=== PATIENT | female | born 1980 | race African-American/Black ===

== ENCOUNTER 2018-04-04 16:10 | Inpatient (IN) | payer MEDICAID ==
[~2018-04-04] VITALS: Ht 157.5 cm; Wt 74.8 kg
[2018-04-04] MEDS ORDERED: BETAMET ACET/BETAMET NA PH 30 MG/5 ML VIAL IM ONE (17:30)
[2018-04-04] MEDS ORDERED: AMPICILLIN SODIUM 2 GM in NS 100 ML IV ONE (17:30)
[2018-04-04] MEDS ORDERED: AZITHROMYCIN 250 MG TABLET PO ONE (17:30)
[2018-04-04] MEDS: LR 1,000 ML IV SCH (17:39)
[2018-04-04 17:42] LABS: BILIRUBIN,URINE NEGATIVE (NEGATIVE); BLOOD, URINE NEGATIVE (NEGATIVE); CLARITY/URINE CLEAR (CLEAR); COLOR,URINE YELLOW (YELLOW); GLUCOSE,URINE NEGATIVE (NEGATIVE); KETONES,URINE NEGATIVE (NEGATIVE); LEUKOCYTE ESTERASE ,URINE 1+ (NEGATIVE); NITRITE, URINE NEGATIVE (NEGATIVE); PROTEIN URINE NEGATIVE (NEGATIVE); UROBILINOGEN,URINE 0.2 (0.2-1.0)
[2018-04-04 17:50] LABS: BACTERIA,URINE FEW /HPF (None Seen); RBC,URINE 0-3 /HPF (0-3); TRICHOMONAS,URINE Few /HPF (None Seen); WBC,URINE 20-50 /HPF (0-3)
[2018-04-04 17:55] LABS: HEMATOCRIT 29.3 % (36-48); HEMOGLOBIN 9.7 g/dL (12.0-16.0); MEAN CORPUSCULAR HEMOGLOBIN 27 pg (27-31); MEAN CORPUSCULAR HGB CONC 33 % (32-36); MEAN CORPUSCULAR VOLUME 83 fL (79.0-98.0); PLATELET COUNT (AUTO) 277 K/uL (130-430); RED BLOOD CELL COUNT(AUTO) 3.54 MIL/uL (4.2-6.2); RED CELL DISTRIBUTION WIDTH 14.6 % (9.0-15.0); WHITE BLOOD COUNT (AUTO) 10.7 K/uL (4.8-10.8)
[2018-04-04 17:59] LABS: BAND % (MANUAL) 0 % (0-6); BASOPHILS % (MANUAL) 0 % (0-2); CALCIUM 8.5 mg/dL (8.4-11.0); CREATININE 0.65 mg/dL (0.55-1.30); EOSINOPHILS % (MANUAL) 0 % (0-7); LYMPHOCYTES % (MANUAL) 16 % (20-46); MONOCYTES % (MANUAL) 8 % (0-11); POTASSIUM 3.7 mmol/L (3.5-5.1)
[2018-04-04 18:04] LABS: TOTAL BILIRUBIN 0.5 mg/dL (0.0-1.0)
[2018-04-04] MEDS ORDERED: ONDANSETRON HCL 4 MG/2 ML VIAL ONE (18:59)
[2018-04-04] MEDS ORDERED: ONDANSETRON HCL 4 MG/2 ML VIAL IVP PRN (19:00)
[2018-04-04] MEDS ORDERED: AZITHROMYCIN 500 MG in NS 250 ML IV ONE (19:00)
[2018-04-04] MEDS ORDERED: MAGNESIUM SULFATE IN WATER 100 ML IV ONE (20:10)
[2018-04-04] MEDS ORDERED: MORPHINE SULFATE 10 MG/ML VIAL IM ONE (20:15)
[2018-04-04] MEDS ORDERED: MAGNESIUM SULFATE 1 GM/2 ML VIAL IVP ONE (20:15)
[2018-04-04] MEDS ORDERED: PROMETHAZINE HCL 25 MG/ML AMP IM ONE (20:15)
[2018-04-04] MEDS ORDERED: MAGNESIUM SULFATE 50 ML IV ONE (20:45)
[2018-04-04] MEDS ORDERED: metroNIDAZOLE 500 MG TABLET PO SCH (21:00)
[2018-04-04] MEDS ORDERED: metroNIDAZOLE 500 mg/NS 100 ML IV SCH (22:00)
[2018-04-04] MEDS ORDERED: metroNIDAZOLE 500 mg/NS 200 ML IV ONE (22:23)
[2018-04-04] MEDS ORDERED: AZITHROMYCIN 500 MG/VIAL (ZITHROMAX) IV ONE (22:24)
[2018-04-04] MEDS: metroNIDAZOLE 500 mg/NS 100 ML IV SCH (22:28)
[2018-04-05 01:21] VITALS: BP_SYST 90
[2018-04-05] MEDS: AMPICILLIN SODIUM 1 GM in NS 50 ML IV SCH ×4 (02:09→17:40)
[2018-04-05] MEDS: metroNIDAZOLE 500 mg/NS 100 ML IV SCH ×2 (09:00→21:00)
[2018-04-05] MEDS ORDERED: AZITHROMYCIN 250 MG TABLET PO SCH (09:00)
[2018-04-05] MEDS ORDERED: FAMOTIDINE 20 MG TABLET PO ONE (09:30)
[2018-04-05] MEDS: FAMOTIDINE 20 MG TABLET PO SCH (12:30)
[2018-04-05] MEDS: LR 1,000 ML IV SCH (13:38)
[2018-04-05] MEDS ORDERED: MAGNESIUM SULFATE IN WATER 500 ML IV ONE (13:44)
[2018-04-05] MEDS ORDERED: BETAMET ACET/BETAMET NA PH 30 MG/5 ML VIAL IM ONE ×2 (17:30→17:42)
[2018-04-05] MEDS ORDERED: FAMOTIDINE 20 MG TABLET ONE (18:06)
[2018-04-05] MEDS ORDERED: AZITHROMYCIN 500 MG in NS 250 ML IV SCH (19:00)
[2018-04-05] MEDS ORDERED: ACETAMINOPHEN 325 MG TABLET PO PRN (22:45)
[2018-04-06] MEDS: LR 1,000 ML IV SCH (00:20)
[2018-04-06] MEDS: AMPICILLIN SODIUM 1 GM in NS 50 ML IV SCH ×4 (05:50→11:36)
[2018-04-06] MEDS: FAMOTIDINE 20 MG TABLET PO SCH (06:05)
[2018-04-06] MEDS ORDERED: FAMOTIDINE 20 MG TABLET ONE (06:06)
[2018-04-06] MEDS ORDERED: MORPHINE SULFATE 10 MG/ML VIAL IM ONE (07:15)
[2018-04-06] MEDS ORDERED: PROMETHAZINE HCL 25 MG/ML AMP IM ONE (07:15)
[2018-04-06] MEDS ORDERED: MORPHINE SULFATE 10 MG/ML VIAL ONE (07:20)
[2018-04-06] MEDS ORDERED: PHENYLEPHRINE HCL 10 MG/ML VIAL (NEOSYNEPHRINE) ONE (07:23)
[2018-04-06] MEDS ORDERED: PROMETHAZINE HCL 25 MG/ML AMP ONE (07:29)
[2018-04-06] MEDS: metroNIDAZOLE 500 mg/NS 100 ML IV SCH (08:55)
[2018-04-06] MEDS ORDERED: MAGNESIUM SULFATE IN WATER 500 ML IV ONE (09:22)
== END 2018-04-06 12:00 | disposition short-term general hospital (02) | DRG 566 ==
LOC: SPU 16:10 → OBSVTOIN 20:00
PROVIDERS: ADMIT Specialist; ATTEND Specialist
DX: O30.003 Twin pregnancy, unspecified number of placenta and unspecified number of amniotic sacs, third trimester (principal); O98.313 Other infections with a predominantly sexual mode of transmission complicating pregnancy, third trimester; O34.219 Maternal care for unspecified type scar from previous cesarean delivery; A59.01 Trichomonal vulvovaginitis; O42.913 Preterm premature rupture of membranes, unspecified as to length of time between rupture and onset of labor, third trimester; Z3A.38 38 weeks gestation of pregnancy
CPT/HCPCS: 36415; 76810; 76815; 80053; 81000-TC; 85007; 85027; 87086; G0378; J0290; J0456; J0702; J2270; J2370; J2405; J2550; J3475; J3490; J7050; Q0144

== ENCOUNTER 2019-05-24 19:52 | Emergency (ER) | payer MEDICAID ==
[~2019-05-24] VITALS: Ht 157.5 cm; Wt 56.7 kg
[2019-05-24 20:20] VITALS: BP_SYST 119
[2019-05-24] MEDS ORDERED: NACL 0.9% 1,000 ML IV ONE (20:41)
[2019-05-24] MEDS ORDERED: PREN-18 PO (20:42)
[2019-05-24] MEDS ORDERED: ONDANSETRON HCL 4 MG/2 ML VIAL IVP ONE (20:45)
--- NOTE | 2019-05-24 21:50 | NUR ---
Patient left without being seen. No further treatment provided. ER MD aware
--- NOTE | 2019-05-24 21:50 | NUR ---
Called pt in several times, no answer
== END 2019-05-24 21:50 | disposition left against medical advice (07) ==
LOC: SED 19:52
DX: N93.9 Abnormal uterine and vaginal bleeding, unspecified (principal); R10.30 Lower abdominal pain, unspecified; Z53.21 Procedure and treatment not carried out due to patient leaving prior to being seen by health care provider